=== PATIENT | female | born 2000 | race Caucasian/White ===

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

== ENCOUNTER 2020-09-02 17:52 | Observation (INO) | payer BC ==
[2020-09-02] MEDS ORDERED: Sodium Chloride 0.9% 10 ML Syringe FLUSH PRN (18:19)
[2020-09-02] MEDS ORDERED: Sodium Chloride 0.9% 1,000 ML IV ONE (18:19)
[2020-09-02] MEDS ORDERED: Ondansetron 4 MG/2 ML SDV IVPUSH ONE (18:19)
[2020-09-02] MEDS ORDERED: HYDROmorphone 0.5 MG/0.5 ML Syringe IVPUSH ONE (18:19)
--- NOTE | 2020-09-02 18:38 | EDM.PDOC ---
ED HPI GENERAL MEDICAL PROBLEM - General Chief Complaint: Abdominal Pain Stated Complaint: ABDOMINAL PAIN Time Seen by Provider: 09/02/20 18:07 Source of Information: Reports: Patient History Limitations: Reports: No Limitations, Other (Vital signs reveal a temp of 99.1, pulse of 70, respiratory rate 20, blood pressure 129/87, pulse 100% on room air) - History of Present Illness INITIAL COMMENTS - FREE TEXT/NARRATIVE: 19-year-old female presents to the emergency department today with complaints of right lower quadrant abdominal pain. She states the abdominal pain started when she was outside for last evening. She states she developed sudden onset right lower quadrant abdominal pain and then ran to the restroom and vomited a large amount due to the pain. She states that the pain has been fairly constant since it started. She states she did go to work this morning however she did leave early due to the pain. When she ambulates she does ambulate hunched over. She states that on the car ride over every bump that was hit in the road caused her to have significant pain to her right lower quadrant. She has been nauseated all day today and did attempt to eat supper however only ate a couple of bites of noodles. As she remained fairly nauseated due to the pain. She denies any fever or chills associated with this. She denies any diarrhea. She states she had a normal bowel movement yesterday morning. Right Abdomen Pain Score (Numeric/FACES): 10 - Related Data Allergies Allergy/AdvReac Type Severity Reaction Status Date / Time guaifenesin [From Mucinex] AdvReac Hallucinati Verified 09/03/18 19:06 ons morphine AdvReac Chest Pain Verified 09/03/18 19:06 Home Meds: Home Meds desog-e.[id number].estradioL [Kariva 28 Day] 1 tab PO DAILY 06/09/17 [History] FLUoxetine HCl [Fluoxetine HCl] 20 mg PO DAILY 03/11/18 [History] Ondansetron [Zofran ODT] 4 mg PO Q6H PRN #10 tab.dis 09/03/18 [Rx] Methylphenidate [Ritalin] 10 mg PO DAILY 09/02/20 [History] Past Medical History - Past Health History Medical/Surgical History: Denies Medical/Surgical History HEENT History: Reports: Otitis Media, Sinusitis, Other (See Below) Other HEENT History: pharyngitis, sore throat, wears glasses Cardiovascular History: Reports: None Respiratory History: Reports: Other (See Below) Other Respiratory History: cough, URI Gastrointestinal History: Reports: GERD Other Gastrointestinal History: abdominal pain Genitourinary History: Reports: None [employer] SAL[employer] History: Reports: None Musculoskeletal History: Reports: Other (See Below) Other Musculoskeletal History: left ankle injury, left wrist ganglion cyst Neurological History: Reports: None Psychiatric History: Reports: Anxiety Endocrine/Metabolic History: Reports: None Hematologic History: Reports: None Immunologic History: Reports: None Oncologic (Cancer) History: Reports: None Dermatologic History: Reports: Other (See Below) Other Dermatologic History: acne - Infectious Disease History Infectious Disease History: Reports: None - Past Surgical History Head Surgeries/Procedures: Reports: None HEENT Surgical History: Reports: Adenoidectomy, Oral Surgery, Tonsillectomy Cardiovascular Surgical History: Reports: None Respiratory Surgical History: Reports: None GI Surgical History: Reports: None Female Surgical History: Reports: None Other Female Surgeries/Procedures: on control pills Endocrine Surgical History: Reports: None Neurological Surgical History: Reports: None Musculoskeletal Surgical History: Reports: None Oncologic Surgical History: Reports: None Social & Family History - Family History Family Medical History: No Pertinent Family History Cardiac: Reports: CAD Respiratory: Reports: Asthma - Tobacco Use Tobacco Use Status *Q: Never Tobacco User - Caffeine Use Caffeine Use: Reports: Coffee, Energy Drinks, Soda, Tea - Recreational Drug Use Recreational Drug Use: No - Living Situation & Occupation Living situation: Reports: Single, with Family 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 ED EXAM, GI/ABD - Physical Exam Exam: See Below Exam Limited By: No Limitations General Appearance: Alert, WD/WN, Moderate Distress (gurading) Eyes: Bilateral: EOMI Ears: Normal External Exam, Hearing Grossly Normal Nose: Normal Inspection Throat/Mouth: Normal Inspection, Normal Lips, Normal Voice, No Airway Compromise Head: Atraumatic, Normocephalic Neck: Normal Inspection, Supple, Non-Tender, Full Range of Motion Respiratory/Chest: No Respiratory Distress, Lungs Clear, Normal Breath Sounds, No Accessory Muscle Use, Chest Non-Tender Cardiovascular: Normal Peripheral Pulses, Regular Rate, Rhythm, No Murmur GI/Abdominal Exam: Soft (semifirm), No Distention, Tender (right upper and lower quadrant), Abnormal Bowel Sounds (hypoactive) (Female) Exam: Deferred Rectal (Female) Exam: Deferred Back Exam: Normal Inspection Extremities: Normal Inspection Neurological: Alert, Oriented, Normal Cognition Psychiatric: Normal Affect, Normal Mood Skin Exam: Warm, Dry, Intact, Normal Color, No Rash Lymphatic: No Adenopathy Course - Vital Signs Text/Narrative:: 19-year-old female who developed right lower quadrant pain while she was eating supper last evening at a restaurant. She states the pain came on suddenly and caused her to run to the bathroom and vomit. Reports the pain has been fairly constant since then. Denies any associated fever or chills. Denies any diarrhea. Patient is healthy otherwise. I have ordered a urine test, urinalysis, labs, a liter of IV fluids as she is likely dehydrated, Zofran and Dilaudid for pain. Last Recorded V/S: Last Vital Signs Temp 99.1 F 09/02/20 18:10 Pulse 70 09/02/20 18:10 Resp 20 09/02/20 18:10 BP 129/87 09/02/20 18:10 Pulse Ox 100 09/02/20 18:10 - Orders/Labs/Meds Orders: Active Orders 24 hr Category Date Time Status Admission Status [Patient Status] [ADT] Routine ADT 09/02/20 22:00 Active Abdomen Pelvis w Cont [CT] Stat Exams 09/02/20 19:12 Taken CULTURE URINE [RM] Stat Lab 09/02/20 19:16 Received Sodium Chloride 0.9% [Normal Saline] 1,000 ml Med 09/02/20 19:45 Active IV ASDIRECTED Sodium Chloride 0.9% [Normal Saline] 100 ml Med 09/02/20 20:45 Active IV ASDIRECTED Sodium Chloride 0.9% [Saline Flush] Med 09/02/20 18:19 Active 10 ml FLUSH ASDIRECTED PRN Sodium Chloride 0.9% [Saline Flush] Med 09/02/20 20:45 Active 10 ml FLUSH BOLUS Saline Lock Insert [OM.PC] Stat Oth 09/02/20 18:19 Ordered Medication Orders Sodium Chloride (Normal Saline) 1,000 mls @ 100 mls/hr IV ASDIRECTED JEWELS Last Admin: 09/02/20 19:57 Dose: 100 mls/hr Documented by: CHELSI Sodium Chloride (Normal Saline) 100 mls @ 60 drops/hr IV ASDIRECTED JEWELS Sodium Chloride (Sodium Chloride 0.9% 10 Ml Syringe) 10 ml FLUSH ASDIRECTED PRN PRN Reason: Keep Vein Open Last Admin: 09/02/20 18:26 Dose: 10 ml Documented by: CHELSI Sodium Chloride (Sodium Chloride 0.9% 10 Ml Syringe) 10 ml FLUSH BOLUS JEWELS Labs: Laboratory Tests 09/02/20 09/02/20 09/02/20 Range/Units 18:20 18:20 18:20 WBC 7.90 (3.98-10.04) K/mm3 RBC 4.14 (3.98-5.22) M/mm3 Hgb 12.2 D (11.2-15.7) gm/dl Hct 35.8 (34.1-44.9) % MCV 86.5 (79.4-94.8) fl MCH 29.5 (25.6-32.2) pg MCHC 34.1 (32.2-35.5) g/dl RDW Std Deviation 38.5 (36.4-46.3) fL Plt Count 317 (182-369) K/mm3 MPV 8.4 L (9.4-12.3) fl Neut % (Auto) 53.2 (34.0-71.1) % Lymph % (Auto) 34.4 (19.3-51.7) % Atkinson % (Auto) 10.0 (4.7-12.5) % Eos % (Auto) 1.9 (0.7-5.8) Baso % (Auto) 0.4 (0.1-1.2) % Neut # (Auto) 4.20 (1.56-6.13) K/mm3 Lymph # (Auto) 2.72 (1.18-3.74) K/mm3 Atkinson # (Auto) 0.79 H (0.24-0.36) K/mm3 Eos # (Auto) 0.15 (0.04-0.36) K/mm3 Baso # (Auto) 0.03 (0.01-0.08) K/mm3 Sodium 139 (136-145) mEq/L Potassium 3.6 (3.5-5.1) mEq/L Chloride 104 (98-107) mEq/L Carbon Dioxide 27 (21-32) mEq/L Anion Gap 11.6 (5-15) BUN 11 (7-18) mg/dL Creatinine 0.9 (0.55-1.02) mg/dL Est Cr Clr Drug Dosing 78.76 mL/min Estimated GFR (MDRD) > 60 (>60) mL/min BUN/Creatinine Ratio 12.2 L (14-18) Glucose 107 H (74-106) mg/dL Calcium 8.6 (8.5-10.1) mg/dL Total Bilirubin 0.4 (0.2-1.0) mg/dL AST 22 (15-37) U/L ALT 28 (14-59) U/L Alkaline Phosphatase 54 (46-116) U/L C-Reactive Protein 0.7 (<1.0) mg/dL Total Protein 6.7 (6.4-8.2) g/dl Albumin 3.5 (3.4-5.0) g/dl Globulin 3.2 gm/dL Albumin/Globulin Ratio 1.1 (1-2) HCG, Qual Negative (NEGATIVE) Urine Color (Yellow) Urine Appearance (Clear) Urine pH (5.0-8.0) Ur Specific Crockett (1.005-1.030) Urine Protein (Negative) Urine Glucose (UA) (Negative) Urine Ketones (Negative) Urine Occult Blood (Negative) Urine Nitrite (Negative) Urine Bilirubin (Negative) Urine Urobilinogen (0.2-1.0) Ur Leukocyte Esterase (Negative) Urine RBC (0-5) /hpf Urine WBC (0-5) /hpf Ur Squamous Epith Cells (0-5) /hpf Urine Bacteria (FEW) /hpf Urine Mucus (FEW) /hpf SARS-CoV-2 RNA (DOLORES) (NEGATIVE) 09/02/20 09/02/20 Range/Units 18:22 19:16 WBC (3.98-10.04) K/mm3 RBC (3.98-5.22) M/mm3 Hgb (11.2-15.7) gm/dl Hct (34.1-44.9) % MCV (79.4-94.8) fl MCH (25.6-32.2) pg MCHC (32.2-35.5) g/dl RDW Std Deviation (36.4-46.3) fL Plt Count (182-369) K/mm3 MPV (9.4-12.3) fl Neut % (Auto) (34.0-71.1) % Lymph % (Auto) (19.3-51.7) % Atkinson % (Auto) (4.7-12.5) % Eos % (Auto) (0.7-5.8) Baso % (Auto) (0.1-1.2) % Neut # (Auto) (1.56-6.13) K/mm3 Lymph # (Auto) (1.18-3.74) K/mm3 Atkinson # (Auto) (0.24-0.36) K/mm3 Eos # (Auto) (0.04-0.36) K/mm3 Baso # (Auto) (0.01-0.08) K/mm3 Sodium (136-145) mEq/L Potassium (3.5-5.1) mEq/L Chloride (98-107) mEq/L Carbon Dioxide (21-32) mEq/L Anion Gap (5-15) BUN (7-18) mg/dL Creatinine (0.55-1.02) mg/dL Est Cr Clr Drug Dosing mL/min Estimated GFR (MDRD) (>60) mL/min BUN/Creatinine Ratio (14-18) Glucose (74-106) mg/dL Calcium (8.5-10.1) mg/dL Total Bilirubin (0.2-1.0) mg/dL AST (15-37) U/L ALT (14-59) U/L Alkaline Phosphatase (46-116) U/L C-Reactive Protein (<1.0) mg/dL Total Protein (6.4-8.2) g/dl Albumin (3.4-5.0) g/dl Globulin gm/dL Albumin/Globulin Ratio (1-2) HCG, Qual (NEGATIVE) Urine Color Yellow (Yellow) Urine Appearance Clear (Clear) Urine pH 7.0 (5.0-8.0) Ur Specific Crockett 1.020 (1.005-1.030) Urine Protein Negative (Negative) Urine Glucose (UA) Negative (Negative) Urine Ketones Negative (Negative) Urine Occult Blood Negative (Negative) Urine Nitrite Negative (Negative) Urine Bilirubin Negative (Negative) Urine Urobilinogen 0.2 (0.2-1.0) Ur Leukocyte Esterase 1+ H (Negative) Urine RBC 0-5 (0-5) /hpf Urine WBC 5-10 H (0-5) /hpf Ur Squamous Epith Cells 0-5 (0-5) /hpf Urine Bacteria Occasional (FEW) /hpf Urine Mucus Not seen (FEW) /hpf SARS-CoV-2 RNA (DOLORES) Negative (NEGATIVE) Meds: Medications Generic Name Dose Route Start Last Admin Trade Name Freq PRN Reason Stop Dose Admin Sodium Chloride 1,000 mls @ 100 mls/hr 09/02/20 19:45 09/02/20 19:57 Normal Saline IV 100 mls/hr ASDIRECTED JEWELS Administration Sodium Chloride 100 mls @ 60 drops/hr 09/02/20 20:45 Normal Saline IV ASDIRECTED JEWELS Sodium Chloride 10 ml 09/02/20 18:19 09/02/20 18:26 Sodium Chloride 0.9% 10 Ml Syringe FLUSH 10 ml ASDIRECTED PRN Administration Keep Vein Open Sodium Chloride 10 ml 09/02/20 20:45 Sodium Chloride 0.9% 10 Ml Syringe FLUSH BOLUS JEWELS Discontinued Medications Generic Name Dose Route Start Last Admin Trade Name Freq PRN Reason Stop Dose Admin Fentanyl 50 mcg 09/02/20 19:15 09/02/20 19:20 Fentanyl 100 Mcg/2 Ml Sdv IVPUSH 09/02/20 19:16 50 mcg ONETIME ONE Administration Hydromorphone HCl 0.5 mg 09/02/20 18:19 09/02/20 18:26 Hydromorphone 0.5 Mg/0.5 Ml Syringe IVPUSH 09/02/20 18:20 0.5 mg ONETIME ONE Administration Sodium Chloride 1,000 mls @ 999 mls/hr 09/02/20 18:19 09/02/20 18:26 Normal Saline IV 09/02/20 19:19 999 mls/hr ONETIME ONE Administration Iopamidol 100 ml 09/02/20 20:40 Iopamidol 612 Mg/Ml 100 Ml Bottle IVPUSH 09/02/20 20:41 ONETIME ONE Ketorolac Tromethamine 30 mg 09/02/20 21:34 09/02/20 21:40 Ketorolac 30 Mg/Ml Sdv IVPUSH 09/02/20 21:35 30 mg ONETIME ONE Administration Ondansetron HCl 4 mg 09/02/20 18:19 09/02/20 18:26 Ondansetron 4 Mg/2 Ml Sdv IVPUSH 09/02/20 18:20 4 mg ONETIME ONE Administration - Re-Assessments/Exams Free Text/Narrative Re-Assessment/Exam: 09/02/20 19:14 Hematology reveals a WBC of 7.90, hemoglobin 12.2, hematocrit 35.8, sodium 139, potassium 3.6, carbon dioxide 27, anion gap 11.6, BUN 11, creatinine 0.9, glucose 107, C-reactive protein 0.7, HCT qualitative is negative, Covid negative Patient is still having a significant amount of pain to her abdomen. I have ordered a CT of the abdomen pelvis with contrast. And I will order some fentanyl on this patient for pain control. 09/02/20 20:18 Urinalysis reveals 1+ leukocyte Estrace, 5-10 urine WBCs, urine culture is pending. 09/02/20 22:01 vRad radiologist impression: 1. The appendix is borderline prominent at 7 mm. No definite adjacent fat stranding. Correlate clinically and with laboratory values to exclude any possibility of very early appendicitis. 2. No other evidence for acute process within the abdomen/pelvis. No nonobstructive bowel. 3. Very minimal fullness of the left renal collecting system of uncertain significance. I have phoned , the surgeon on-call, and he request to have the patient admitted under observation status. He would like her to receive 1 g of Invanz, take the patient n.p.o., and have maintenance IV fluids running, and medicine for pain control. He will see her in the morning on the floor to discuss an appendectomy. I discussed this with the patient and her dad who is at the bedside and they are both agreeable to this plan. Departure - Departure Time of Disposition: 22:04 Disposition: Refer to Observation Condition: Good Clinical Impression: Appendicitis Qualifiers: Appendicitis type: acute appendicitis Acute appendicitis type: unspecified acute appendicitis type Qualified Code(s): K35.80 - Unspecified acute appendicit is - Discharge Information Referrals: Fridrich,Ladonna F, PA-C [Primary Care Provider] - Forms: ED Department Discharge Sepsis Event Note (ED) - Evaluation Sepsis Screening Result: No Definite Risk - Focused Exam Vital Signs: Vital Signs Temp Pulse Resp BP Pulse Ox 09/02/20 18:10 99.1 F 70 20 129/87 100 - My Orders Last 24 Hours: My Active Orders 09/02/20 18:19 Sodium Chloride 0.9% [Saline Flush] 10 ml FLUSH ASDIRECTED PRN Saline Lock Insert [OM.PC] Stat 09/02/20 19:12 Abdomen Pelvis w Cont [CT] Stat 09/02/20 19:16 CULTURE URINE [RM] Stat 09/02/20 19:45 Sodium Chloride 0.9% [Normal Saline] 1,000 ml IV ASDIRECTED 09/02/20 20:45 Sodium Chloride 0.9% [Normal Saline] 100 ml IV ASDIRECTED Sodium Chloride 0.9% [Saline Flush] 10 ml FLUSH BOLUS - Assessment/Plan Last 24 Hours: My Active Orders 09/02/20 18:19 Sodium Chloride 0.9% [Saline Flush] 10 ml FLUSH ASDIRECTED PRN Saline Lock Insert [OM.PC] Stat 09/02/20 19:12 Abdomen Pelvis w Cont [CT] Stat 09/02/20 19:16 CULTURE URINE [RM] Stat 09/02/20 19:45 Sodium Chloride 0.9% [Normal Saline] 1,000 ml IV ASDIRECTED 09/02/20 20:45 Sodium Chloride 0.9% [Normal Saline] 100 ml IV ASDIRECTED Sodium Chloride 0.9% [Saline Flush] 10 ml FLUSH BOLUS
[2020-09-02] MEDS ORDERED: fentaNYL 100 MCG/2 ML SDV IVPUSH ONE (19:15)
[2020-09-02] MEDS ORDERED: Sodium Chloride 0.9% 1,000 ML IV SCH (19:45)
[2020-09-02] MEDS ORDERED: Iopamidol 612 MG/ML 100 ML Bottle IVPUSH ONE (20:40)
[2020-09-02] MEDS ORDERED: Sodium Chloride 0.9% 100 ML IV SCH (20:45)
[2020-09-02] MEDS ORDERED: Sodium Chloride 0.9% 10 ML Syringe FLUSH SCH (20:45)
[2020-09-02] MEDS ORDERED: Ketorolac 30 MG/ML SDV IVPUSH ONE (21:34)
[2020-09-02] MEDS ORDERED: Ertapenem 1 GM Vial IM ONE (23:16)
[2020-09-02] MEDS ORDERED: Ertapenem 1 GM in Sodium Chloride 0.9% 50 ML IV ONE (23:39)
[2020-09-02] MEDS ORDERED: Sodium Chloride 0.9% 50 ML ONE (23:52)
[2020-09-02] MEDS: HYDROmorphone 0.5 MG/0.5 ML Syringe IVPUSH PRN (23:59)
[2020-09-03] MEDS ORDERED: Ondansetron 4 MG/2 ML SDV IVPUSH PRN (00:27)
[2020-09-03] MEDS ORDERED: Sodium Chloride 0.9% 1,000 ML IV SCH (01:00)
[2020-09-03] MEDS: HYDROmorphone 0.5 MG/0.5 ML Syringe IVPUSH PRN ×3 (03:28→10:28)
--- NOTE | 2020-09-03 09:19 | CT ---
CT abdomen and pelvis Technique: Multiple axial sections were obtained from above the dome of the diaphragm inferiorly through the pubic symphysis. Intravenous and oral contrast was utilized. Reconstructed coronal and sagittal images were obtained. Delayed images were also obtained through the abdomen and pelvis. Comparison: Prior CT abdomen and pelvis exam of 02/09/19. Findings: Visualized lung bases show nothing acute. Liver contains no focal parenchymal abnormality. Spleen appears within normal limits. Adrenal gland show no nodule. Pancreas shows no discrete abnormality. Kidneys show symmetric contrast enhancement. No hydronephrosis or mass is seen. Gallbladder contains no calcified gallstones. Abdominal aorta shows no aneurysm. No retroperitoneal adenopathy is seen. No pelvic mass or adenopathy is noted. Appendix measures 7 mm. No inflammatory change is seen around the appendix. Delayed images show contrast within both ureters as well as contrast within the bladder. Bone window settings were reviewed. No acute osseous finding is appreciated. Impression: 1. Appendix measures 7 mm. No inflammatory change is seen. No definite findings of appendicitis are seen but please correlate with the patient's symptoms and laboratory. 2. Nothing acute is appreciated on CT study of the abdomen and pelvis. Diagnostic code #2 I agree with preliminary report from [facility], finalized on 09/02/20, 10:40 PM CDT, code 1
--- NOTE | 2020-09-03 11:24 | PCM.PREANE ---
Preanesthetic Assessment - Procedure Proposed Procedure: Laparoscopic Appendectomy - Anesthesia/Transfusion/Family Hx Anesthesia History: Prior Anesthesia Without Reaction Family History of Anesthesia Reaction: No Transfusion History: No Prior Transfusion(s) Intubation History: Unknown - Review of Systems General: Fatigue, Malaise Pulmonary: No Symptoms Cardiovascular: No Symptoms Gastrointestinal: Abdominal Pain (RLQ), Nausea Neurological: No Symptoms - Physical Assessment NPO Status Date: 09/02/20 NPO Status Time: 00:00 Vital Signs: Last Vital Signs Temp 36.7 C 09/03/20 07:28 Pulse 83 09/03/20 07:28 Resp 14 09/03/20 07:28 BP 99/75 09/03/20 07:28 Pulse Ox 100 09/03/20 07:28 Height: 1.65 m Weight: 50.984 kg ASA Class: 1 Mental Status: Alert & Oriented x3 Airway Class: Mallampati = 1 Dentition: Reports: Normal Dentition Thyro-Mental Finger Breadths: 3 Mouth Opening Finger Breadths: 2 ROM/Head Extension: Full Lungs: Clear to Auscultation, Normal Respiratory Effort Cardiovascular: Regular Rate, Regular Rhythm - Lab Values: Laboratory Last Values WBC 7.90 K/mm3 (3.98-10.04) 09/02/20 18:20 RBC 4.14 M/mm3 (3.98-5.22) 09/02/20 18:20 Hgb 12.2 gm/dl (11.2-15.7) D 09/02/20 18:20 Hct 35.8 % (34.1-44.9) 09/02/20 18:20 MCV 86.5 fl (79.4-94.8) 09/02/20 18:20 MCH 29.5 pg (25.6-32.2) 09/02/20 18:20 MCHC 34.1 g/dl (32.2-35.5) 09/02/20 18:20 RDW Std Deviation 38.5 fL (36.4-46.3) 09/02/20 18:20 Plt Count 317 K/mm3 (182-369) 09/02/20 18:20 MPV 8.4 fl (9.4-12.3) L 09/02/20 18:20 Neut % (Auto) 53.2 % (34.0-71.1) 09/02/20 18:20 Lymph % (Auto) 34.4 % (19.3-51.7) 09/02/20 18:20 [place] % (Auto) 10.0 % (4.7-12.5) 09/02/20 18:20 Eos % (Auto) 1.9 (0.7-5.8) 09/02/20 18:20 Baso % (Auto) 0.4 % (0.1-1.2) 09/02/20 18:20 Neut # (Auto) 4.20 K/mm3 (1.56-6.13) 09/02/20 18:20 Lymph # (Auto) 2.72 K/mm3 (1.18-3.74) 09/02/20 18:20 [place] # (Auto) 0.79 K/mm3 (0.24-0.36) H 09/02/20 18:20 Eos # (Auto) 0.15 K/mm3 (0.04-0.36) 09/02/20 18:20 Baso # (Auto) 0.03 K/mm3 (0.01-0.08) 09/02/20 18:20 Sodium 139 mEq/L (136-145) 09/02/20 18:20 Potassium 3.6 mEq/L (3.5-5.1) 09/02/20 18:20 Chloride 104 mEq/L (98-107) 09/02/20 18:20 Carbon Dioxide 27 mEq/L (21-32) 09/02/20 18:20 Anion Gap 11.6 (5-15) 09/02/20 18:20 BUN 11 mg/dL (7-18) 09/02/20 18:20 Creatinine 0.9 mg/dL (0.55-1.02) 09/02/20 18:20 Est Cr Clr Drug Dosing 78.76 mL/min 09/02/20 18:20 Estimated GFR (MDRD) > 60 mL/min (>60) 09/02/20 18:20 BUN/Creatinine Ratio 12.2 (14-18) L 09/02/20 18:20 Glucose 107 mg/dL (74-106) H 09/02/20 18:20 Calcium 8.6 mg/dL (8.5-10.1) 09/02/20 18:20 Total Bilirubin 0.4 mg/dL (0.2-1.0) 09/02/20 18:20 AST 22 U/L (15-37) 09/02/20 18:20 ALT 28 U/L (14-59) 09/02/20 18:20 Alkaline Phosphatase 54 U/L (46-116) 09/02/20 18:20 C-Reactive Protein 0.7 mg/dL (<1.0) 09/02/20 18:20 Total Protein 6.7 g/dl (6.4-8.2) 09/02/20 18:20 Albumin 3.5 g/dl (3.4-5.0) 09/02/20 18:20 Globulin 3.2 gm/dL 09/02/20 18:20 Albumin/Globulin Ratio 1.1 (1-2) 09/02/20 18:20 HCG, Qual Negative (NEGATIVE) 09/02/20 18:20 Urine Color Yellow (Yellow) 09/02/20 19:16 Urine Appearance Clear (Clear) 09/02/20 19:16 Urine pH 7.0 (5.0-8.0) 09/02/20 19:16 Ur Specific [place] 1.020 (1.005-1.030) 09/02/20 19:16 Urine Protein Negative (Negative) 09/02/20 19:16 Urine Glucose (UA) Negative (Negative) 09/02/20 19:16 Urine Ketones Negative (Negative) 09/02/20 19:16 Urine Occult Blood Negative (Negative) 09/02/20 19:16 Urine Nitrite Negative (Negative) 09/02/20 19:16 Urine Bilirubin Negative (Negative) 09/02/20 19:16 Urine Urobilinogen 0.2 (0.2-1.0) 09/02/20 19:16 Ur Leukocyte Esterase 1+ (Negative) H 09/02/20 19:16 Urine RBC 0-5 /hpf (0-5) 09/02/20 19:16 Urine WBC 5-10 /hpf (0-5) H 09/02/20 19:16 Ur Squamous Epith Cells 0-5 /hpf (0-5) 09/02/20 19:16 Urine Bacteria Occasional /hpf (FEW) 09/02/20 19:16 Urine Mucus Not seen /hpf (FEW) 04/25/21 19:16 SARS-CoV-2 RNA (DOLORES) Negative (NEGATIVE) 09/02/20 18:22 - Allergies Allergies/Adverse Reactions: Allergies Allergy/AdvReac Type Severity Reaction Status Date / Time guaifenesin [From Mucinex] AdvReac Hallucinati Verified 09/02/20 23:03 ons morphine AdvReac Chest Pain Verified 09/02/20 23:03 - Blood Blood Available: No Product(s) Available: None - Anesthesia Plan Pre-Op Medication Ordered: None - Acknowledgements Anesthesia Type Planned: General Anesthesia Pt an Appropriate Candidate for the Planned Anesthesia: Yes Alternatives and Risks of Anesthesia Discussed w Pt/Guardian: Yes Pt/Guardian Understands and Agrees with Anesthesia Plan: Yes PreAnesthesia Questionnaire - Past Health History Medical/Surgical History: Denies Medical/Surgical History HEENT History: Reports: Otitis Media, Sinusitis, Other (See Below) Other HEENT History: pharyngitis, sore throat, wears glasses Cardiovascular History: Reports: None Respiratory History: Reports: Other (See Below) Other Respiratory History: cough, URI Gastrointestinal History: Reports: GERD Other Gastrointestinal History: abdominal pain Genitourinary History: Reports: None, Renal Calculus, Other (See Below) Other Genitourinary History: passed stone on her own 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 Musculoskeletal History: Reports: Other (See Below) Other Musculoskeletal History: left ankle injury, left wrist ganglion cyst Neurological History: Reports: None Psychiatric History: Reports: ADD, Anxiety, Panic Attack Endocrine/Metabolic History: Reports: None Hematologic History: Reports: None Immunologic History: Reports: None Oncologic (Cancer) History: Reports: None Dermatologic History: Reports: Other (See Below) Other Dermatologic History: acne - Infectious Disease History Infectious Disease History: Reports: None - Past Surgical History Head Surgeries/Procedures: Reports: None HEENT Surgical History: Reports: Adenoidectomy, Oral Surgery, Tonsillectomy Cardiovascular Surgical History: Reports: None Respiratory Surgical History: Reports: None GI Surgical History: Reports: None Female Surgical History: Reports: None Other Female Surgeries/Procedures: on control pills Endocrine Surgical History: Reports: None Neurological Surgical History: Reports: None Musculoskeletal Surgical History: Reports: None Oncologic Surgical History: Reports: None - SUBSTANCE USE Tobacco Use Status *Q: Never Tobacco User Tobacco Use Within Last Twelve Months: No Second Hand Smoke Exposure: No Days Per Week of Alcohol Use: 1 Number of Drinks Per Day: 0 Total Drinks Per Week: 0 Recreational Drug Use History: No - HOME MEDS Home Medications: Home Meds desog-e.estradioL/e.estradioL [Kariva 28 Day] 1 tab PO DAILY 06/09/17 [History] FLUoxetine HCl [Fluoxetine HCl] 20 mg PO DAILY 03/11/18 [History] Ondansetron [Zofran ODT] 4 mg PO Q6H PRN #10 tab.dis 09/03/18 [Rx] Methylphenidate [Ritalin] 10 mg PO DAILY 09/02/20 [History] - CURRENT (IN HOUSE) MEDS Current Meds: Current Medications Hydromorphone HCl (Hydromorphone 0.5 Mg/0.5 Ml Syringe) 0.5 mg IVPUSH Q2H PRN PRN Reason: Pain Last Admin: 09/03/20 10:28 Dose: 0.5 mg Documented by: Sodium Chloride (Normal Saline) 1,000 mls @ 100 mls/hr IV ASDIRECTED JEWELS Last Admin: 09/03/20 05:28 Dose: 100 mls/hr Documented by: Ondansetron HCl (Ondansetron 4 Mg/2 Ml Sdv) 4 mg IVPUSH Q6H PRN PRN Reason: Nausea Last Admin: 09/03/20 00:00 Dose: 4 mg Documented by: Sodium Chloride (Sodium Chloride 0.9% 10 Ml Syringe) 10 ml FLUSH ASDIRECTED PRN PRN Reason: Keep Vein Open Last Admin: 09/02/20 18:26 Dose: 10 ml Documented by: Discontinued Medications Fentanyl (Fentanyl 100 Mcg/2 Ml Sdv) 50 mcg IVPUSH ONETIME ONE Stop: 09/02/20 19:16 Last Admin: 09/02/20 19:20 Dose: 50 mcg Documented by: Hydromorphone HCl (Hydromorphone 0.5 Mg/0.5 Ml Syringe) 0.5 mg IVPUSH ONETIME ONE Stop: 09/02/20 18:20 Last Admin: 09/02/20 18:26 Dose: 0.5 mg Documented by: Sodium Chloride (Normal Saline) 1,000 mls @ 999 mls/hr IV ONETIME ONE Stop: 09/02/20 19:19 Last Admin: 09/02/20 18:26 Dose: 999 mls/hr Documented by: Sodium Chloride (Normal Saline) 1,000 mls @ 100 mls/hr IV ASD[facility]RECTED [facility] Last Admin: 09/02/20 19:57 Dose: 100 mls/hr Documented by: Sodium Chloride (Normal Saline) 100 mls @ 60 drops/hr IV ASDIRECTED JEWELS Ertapenem 1 gm/ Sodium (Chloride) 50 mls @ 100 mls/hr IV ONETIME ONE Stop: 09/03/20 00:08 Last Admin: 09/03/20 00:00 Dose: 100 mls/hr Documented by: Sodium Chloride (Normal Saline) Confirm Administered Dose 50 mls @ as directed .ROUTE .STK-MED ONE Stop: 09/02/20 23:53 Last Admin: 09/03/20 00:25 Dose: Not Given Documented by: Iopamidol (Iopamidol 612 Mg/Ml 100 Ml Bottle) 100 ml IVPUSH ONETIME ONE Stop: 09/02/20 20:41 Last Admin: 09/02/20 23:41 Dose: Not Given Documented by: Ketorolac Tromethamine (Ketorolac 30 Mg/Ml Sdv) 30 mg IVPUSH ONETIME ONE Stop: 09/02/20 21:35 Last Admin: 09/02/20 21:40 Dose: 30 mg Documented by: Ondansetron HCl (Ondansetron 4 Mg/2 Ml Sdv) 4 mg IVPUSH ONETIME ONE Stop: 09/02/20 18:20 Last Admin: 09/02/20 18:26 Dose: 4 mg Documented by: Sodium Chloride (Sodium Chloride 0.9% 10 Ml Syringe) 10 ml FLUSH BOLUS JEWELS
--- NOTE | 2020-09-03 11:27 | PCM.HP.2 ---
H&P History of Present Illness - General Date of Service: 09/03/20 Admit Problem/Dx: Admission Diagnosis/Problem Admission Diagnosis/Problem Appendicitis Source of Information: Patient History Limitations: Reports: No Limitations - History of Present Illness Initial Comments - Free Text/Narative: Patient started having acute right lower quadrant abdominal pain on Thursday n ight 09/01. That night she vomited after dinner. Thursday morning the pain was there but was able to eat breakfast and go to work. But she had to leave work early due to pain. She came to the ED with significant RLQ pain, unable to walk straight. In the ED wbc was normal but CT scan showed slightly enlarged appendix to 7 mm without discernible periappendiceal inflammation. I was called and recommended antibiotics and admission. I saw the patient tis morning and confirmed the history and findings. I am concerned that she has acute appendicitis. Onset of Symptoms: Reports: Gradual Duration of Symptoms: Reports: Day(s): (2), Getting Worse Location: Reports: Abdomen (rlq) Severity: Severe Improves with: Reports: Medication Worsens with: Reports: Movement Associated Symptoms: Reports: Nausea/Vomiting Right Abdomen Pain Score (Numeric/FACES): 5 - Related Data Allergies/Adverse Reactions: Allergies Allergy/AdvReac Type Severity Reaction Status Date / Time guaifenesin [From Mucinex] AdvReac Hallucinati Verified 09/02/20 23:03 ons morphine AdvReac Chest Pain Verified 09/02/20 23:03 Home Medications: Home Meds desog-e.estradioL/e.estradioL [Kariva 28 Day] 1 tab PO DAILY 06/09/17 [History] FLUoxetine HCl [Fluoxetine HCl] 20 mg PO DAILY 03/11/18 [History] Ondansetron [Zofran ODT] 4 mg PO Q6H PRN #10 tab.dis 09/03/18 [Rx] Methylphenidate [Ritalin] 10 mg PO DAILY 09/02/20 [History] Past Medical History - Past Health History Medical/Surgical History: Denies Medical/Surgical History HEENT History: Reports: Otitis Media, Sinusitis, Other (See Below) Other HEENT History: pharyngitis, sore throat, wears glasses Cardiovascular History: Reports: None Respiratory History: Reports: Other (See Below) Other Respiratory History: cough, URI Gastrointestinal History: Reports: GERD Other Gastrointestinal History: abdominal pain Genitourinary History: Reports: None, Renal Calculus, Other (See Below) Other Genitourinary History: passed stone on her own 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 Musculoskeletal History: Reports: Other (See Below) Other Musculoskeletal History: left ankle injury, left wrist ganglion cyst Neurological History: Reports: None Psychiatric History: Reports: ADD, Anxiety, Panic Attack Endocrine/Metabolic History: Reports: None Hematologic History: Reports: None Immunologic History: Reports: None Oncologic (Cancer) History: Reports: None Dermatologic History: Reports: Other (See Below) Other Dermatologic History: acne - Infectious Disease History Infectious Disease History: Reports: None - Past Surgical History Head Surgeries/Procedures: Reports: None HEENT Surgical History: Reports: Adenoidectomy, Oral Surgery, Tonsillectomy Cardiovascular Surgical History: Reports: None Respiratory Surgical History: Reports: None GI Surgical History: Reports: None Female Surgical History: Reports: None Other Female Surgeries/Procedures: on control pills Endocrine Surgical History: Reports: None Neurological Surgical History: Reports: None Musculoskeletal Surgical History: Reports: None Oncologic Surgical History: Reports: None Social & Family History - Family History Family Medical History: No Pertinent Family History Cardiac: Reports: CAD Respiratory: Reports: Asthma - Tobacco Use Tobacco Use Status *Q: Never Tobacco User Second Hand Smoke Exposure: No - Caffeine Use Caffeine Use: Reports: Coffee, Energy Drinks, Soda, Tea Other Caffeine Use: energy drink every day and the other vary - Recreational Drug Use Recreational Drug Use: No - Living Situation & Occupation Living situation: Reports: Single, with Family 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) H&P Review of Systems - Review of Systems: Review Of Systems: See Below HEENT: Reports: No Symptoms Pulmonary: Reports: No Symptoms Cardiovascular: Reports: No Symptoms Gastrointestinal: Reports: Abdominal Pain Genitourinary: Reports: No Symptoms Musculoskeletal: Reports: No Symptoms Skin: Reports: No Symptoms Exam - Exam Exam: See Below - Vital Signs Vital Signs: Last Vital Signs Temp 98.1 F 09/03/20 07:28 Pulse 83 09/03/20 07:28 Resp 14 09/03/20 07:28 BP 99/75 09/03/20 07:28 Pulse Ox 100 09/03/20 07:28 Weight: 50.984 kg - Exam General: Alert, Oriented, Cooperative Lungs: Clear to Auscultation, Normal Respiratory Effort Cardiovascular: Regular Rate, Regular Rhythm GI/Abdominal Exam: Soft, No Organomegaly, No Distention, No Abnormal Bruit, Tender (RLQ and when raising the right leg) - Patient Data Lab Results Last 24 hrs: Laboratory Results - last 24 hr 09/02/20 09/02/20 09/02/20 Range/Units 18:20 18:20 18:20 WBC 7.90 (3.98-10.04) K/mm3 RBC 4.14 (3.98-5.22) M/mm3 Hgb 12.2 D (11.2-15.7) gm/dl Hct 35.8 (34.1-44.9) % MCV 86.5 (79.4-94.8) fl MCH 29.5 (25.6-32.2) pg MCHC 34.1 (32.2-35.5) g/dl RDW Std Deviation 38.5 (36.4-46.3) fL Plt Count 317 (182-369) K/mm3 MPV 8.4 L (9.4-12.3) fl Neut % (Auto) 53.2 (34.0-71.1) % Lymph % (Auto) 34.4 (19.3-51.7) % [place] % (Auto) 10.0 (4.7-12.5) % Eos % (Auto) 1.9 (0.7-5.8) Baso % (Auto) 0.4 (0.1-1.2) % Neut # (Auto) 4.20 (1.56-6.13) K/mm3 Lymph # (Auto) 2.72 (1.18-3.74) K/mm3 [place] # (Auto) 0.79 H (0.24-0.36) K/mm3 Eos # (Auto) 0.15 (0.04-0.36) K/mm3 Baso # (Auto) 0.03 (0.01-0.08) K/mm3 Sodium 139 (136-145) mEq/L Potassium 3.6 (3.5-5.1) mEq/L Chloride 104 (98-107) mEq/L Carbon Dioxide 27 (21-32) mEq/L Anion Gap 11.6 (5-15) BUN 11 (7-18) mg/dL Creatinine 0.9 (0.55-1.02) mg/dL Est Cr Clr Drug Dosing 78.76 mL/min Estimated GFR (MDRD) > 60 (>60) mL/min BUN/Creatinine Ratio 12.2 L (14-18) Glucose 107 H (74-106) mg/dL Calcium 8.6 (8.5-10.1) mg/dL Total Bilirubin 0.4 (0.2-1.0) mg/dL AST 22 (15-37) U/L ALT 28 (14-59) U/L Alkaline Phosphatase 54 (46-116) U/L C-Reactive Protein 0.7 (<1.0) mg/dL Total Protein 6.7 (6.4-8.2) g/dl Albumin 3.5 (3.4-5.0) g/dl Globulin 3.2 gm/dL Albumin/Globulin Ratio 1.1 (1-2) HCG, Qual Negative (NEGATIVE) Urine Color (Yellow) Urine Appearance (Clear) Urine pH (5.0-8.0) Ur Specific [place] (1.005-1.030) Urine Protein (Negative) Urine Glucose (UA) (Negative) Urine Ketones (Negative) Urine Occult Blood (Negative) Urine Nitrite (Negative) Urine Bilirubin (Negative) Urine Urobilinogen (0.2-1.0) Ur Leukocyte Esterase (Negative) Urine RBC (0-5) /hpf Urine WBC (0-5) /hpf Ur Squamous Epith Cells (0-5) /hpf Urine Bacteria (FEW) /hpf Urine Mucus (FEW) /hpf SARS-CoV-2 RNA (DOLORES) (NEGATIVE) 09/02/20 09/02/20 Range/Units 18:22 19:16 WBC (3.98-10.04) K/mm3 RBC (3.98-5.22) M/mm3 Hgb (11.2-15.7) gm/dl Hct (34.1-44.9) % MCV (79.4-94.8) fl MCH (25.6-32.2) pg MCHC (32.2-35.5) g/dl RDW Std Deviation (36.4-46.3) fL Plt Count (182-369) K/mm3 MPV (9.4-12.3) fl Neut % (Auto) (34.0-71.1) % Lymph % (Auto) (19.3-51.7) % [place] % (Auto) (4.7-12.5) % Eos % (Auto) (0.7-5.8) Baso % (Auto) (0.1-1.2) % Neut # (Auto) (1.56-6.13) K/mm3 Lymph # (Auto) (1.18-3.74) K/mm3 [place] # (Auto) (0.24-0.36) K/mm3 Eos # (Auto) (0.04-0.36) K/mm3 Baso # (Auto) (0.01-0.08) K/mm3 Sodium (136-145) mEq/L Potassium (3.5-5.1) mEq/L Chloride (98-107) mEq/L Carbon Dioxide (21-32) mEq/L Anion Gap (5-15) BUN (7-18) mg/dL Creatinine (0.55-1.02) mg/dL Est Cr Clr Drug Dosing mL/min Estimated GFR (MDRD) (>60) mL/min BUN/Creatinine Ratio (14-18) Glucose (74-106) mg/dL Calcium (8.5-10.1) mg/dL Total Bilirubin (0.2-1.0) mg/dL AST (15-37) U/L ALT (14-59) U/L Alkaline Phosphatase (46-116) U/L C-Reactive Protein (<1.0) mg/dL Total Protein (6.4-8.2) g/dl Albumin (3.4-5.0) g/dl Globulin gm/dL Albumin/Globulin Ratio (1-2) HCG, Qual (NEGATIVE) Urine Color Yellow (Yellow) Urine Appearance Clear (Clear) Urine pH 7.0 (5.0-8.0) Ur Specific [place] 1.020 (1.005-1.030) Urine Protein Negative (Negative) Urine Glucose (UA) Negative (Negative) Urine Ketones Negative (Negative) Urine Occult Blood Negative (Negative) Urine Nitrite Negative (Negative) Urine Bilirubin Negative (Negative) Urine Urobilinogen 0.2 (0.2-1.0) Ur Leukocyte Esterase 1+ H (Negative) Urine RBC 0-5 (0-5) /hpf Urine WBC 5-10 H (0-5) /hpf Ur Squamous Epith Cells 0-5 (0-5) /hpf Urine Bacteria Occasional (FEW) /hpf Urine Mucus Not seen (FEW) /hpf SARS-CoV-2 RNA (DOLORES) Negative (NEGATIVE) Result Diagrams: 09/02/20 18:20 09/02/20 18:20 Sepsis Event Note - Evaluation Sepsis Screening Result: No Definite Risk - Focused Exam Vital Signs: Vital Signs Temp Pulse Resp BP Pulse Ox 09/03/20 07:28 98.1 F 83 14 99/75 100 09/03/20 03:30 98.1 F 69 16 114/88 97 Problem List Initiated/Reviewed/Updated: No Orders Last 24hrs: Active Orders 24 hr Category Date Time Status Admission Status [Patient Status] [ADT] Routine ADT 09/02/20 22:00 Active Bedrest Bathroom Privileges [RC] ASDIRECTED Care 09/03/20 00:27 Active NPO Now [Nothing per Oral Now Diet] [DIET] Diet 09/03/20 Breakfast Active CULTURE URINE [RM] Stat Lab 09/02/20 19:16 Results HYDROmorphone [Dilaudid] Med 09/02/20 23:17 Active 0.5 mg IVPUSH Q2H PRN Ondansetron [Zofran] Med 09/03/20 00:27 Active 4 mg IVPUSH Q6H PRN Sodium Chloride 0.9% [Normal Saline] 1,000 ml Med 09/03/20 01:00 Active IV ASDIRECTED Sodium Chloride 0.9% [Saline Flush] Med 09/02/20 18:19 Active 10 ml FLUSH ASDIRECTED PRN Saline Lock Insert [OM.PC] Stat Oth 09/02/20 18:19 Ordered Code Status [Resuscitation Status] Routine Resus Stat 09/03/20 01:01 Ordered Medication Orders Hydromorphone HCl (Hydromorphone 0.5 Mg/0.5 Ml Syringe) 0.5 mg IVPUSH Q2H PRN PRN Reason: Pain Last Admin: 09/03/20 10:28 Dose: 0.5 mg Documented by: Admin: 09/03/20 07:08 Dose: 0.5 mg Documented by: Admin: 09/03/20 03:28 Dose: 0.5 mg Documented by: Admin: 09/02/20 23:59 Dose: 0.5 mg Documented by: ROJELIO Sodium Chloride (Normal Saline) 1,000 mls @ 100 mls/hr IV ASDIRECTED JEWELS Last Admin: 09/03/20 05:28 Dose: 100 mls/hr Documented by: ROJELIO Ondansetron HCl (Ondansetron 4 Mg/2 Ml Sdv) 4 mg IVPUSH Q6H PRN PRN Reason: Nausea Last Admin: 09/03/20 00:00 Dose: 4 mg Documented by: ROJELIO Sodium Chloride (Sodium Chloride 0.9% 10 Ml Syringe) 10 ml FLUSH ASDIRECTED PRN PRN Reason: Keep Vein Open Last Admin: 09/02/20 18:26 Dose: 10 ml Documented by: CHELSI Assessment/Plan Comment:: I am concerned that the patient has acute appendicitis given RLQ pain and CT with slightly enlarged appendix in absence of any other pathology. I discussed this with the patient and her parents and recommended surgical appendectomy. However, I discussed both surgical and non-surgical options including risks and benefits. the patient opted for surgical appendectomy. Informed consent was obtained. We will explore the abdomen too to make sure no other etiology can visually be identified. Plan: lap appy, possible open, and other indicated procedures.
[2020-09-03] MEDS ORDERED: fentaNYL 250 MCG/5 ML SDV ONE (11:32)
[2020-09-03] MEDS ORDERED: Rocuronium 50 MG/5 ML Vial ONE (11:32)
[2020-09-03] MEDS ORDERED: Midazolam 1 MG/ML 2 ML SDV ONE (11:32)
[2020-09-03] MEDS ORDERED: Ondansetron 4 MG/2 ML SDV ONE (11:32)
[2020-09-03] MEDS ORDERED: Propofol 200 MG/20 ML SDV ONE (11:32)
[2020-09-03] MEDS ORDERED: Ketorolac 30 MG/ML SDV ONE (11:33)
[2020-09-03] MEDS ORDERED: Lidocaine 1% 4 ML ONE (11:33)
[2020-09-03] MEDS ORDERED: Bupivacaine 0.5%/EPINEPHrine 1:200,000 50 ML MDV ONE (12:58)
[2020-09-03] MEDS ORDERED: Glycopyrrolate 0.2 MG/ML SDV ONE (14:20)
[2020-09-03] MEDS ORDERED: fentaNYL 100 MCG/2 ML SDV IVPUSH PRN (14:34)
[2020-09-03] MEDS ORDERED: HYDROmorphone 0.5 MG/0.5 ML Syringe IVPUSH PRN (14:34)
--- NOTE | 2020-09-03 14:35 | PCM.POSTAN ---
POST ANESTHESIA ASSESSMENT - MENTAL STATUS Mental Status: Alert, Oriented - VITAL SIGNS Vital Signs: Last Vital Signs Temp 36.7 C 09/03/20 07:28 Pulse 83 09/03/20 07:28 Resp 14 09/03/20 07:28 BP 99/75 09/03/20 07:28 Pulse Ox 100 09/03/20 07:28 - RESPIRATORY Respiratory Status: Respiratory Rate WNL, Airway Patent, O2 Saturation Stable - CARDIOVASCULAR CV Status: Pulse Rate WNL, Blood Pressure Stable - GASTROINTESTINAL GI Status: No Symptoms - PAIN Pain Score: 2 - POST OP HYDRATION Hydration Status: Adequate & Stable - OBSERVATIONS Free Text/Narrative:: no anesthesia complications noted
--- NOTE | 2020-09-03 15:36 | OR ---
DATE OF OPERATION: 09/03/2020 SURGEON: Akosua Dalton MD PREOPERATIVE DIAGNOSIS: Acute appendicitis. POSTOPERATIVE DIAGNOSIS: Acute appendicitis. PROCEDURE: Laparoscopic appendectomy. ANESTHESIA: General endotracheal with local anesthetic with 1% lidocaine. ESTIMATED BLOOD LOSS: 10 mL. COMPLICATIONS: None. FINDINGS: Mid to distal appendicitis. Inflammatory fluid in the in the abdomen. Otherwise normal abdominal organs. INDICATION AND CONSENT: Ms. Mohamud is a 19-year-old female who started having acute right lower quadrant abdominal pain on Thursday. The patient had associated nausea and vomiting. On Thursday, the patient attempted to go to work, but had to come to the emergency room due to the severity of the pain. The pain was located in the right lower quadrant, was affecting her ability to walk. CT scan revealed concerns for slightly enlarged appendix at 7 mm, but no other abnormalities. The patient had no white count. No fevers, no chills. I saw the patient and evaluated the CT scan and examined. There was concern for low-grade appendicitis or early appendicitis and offered the patient laparoscopic appendectomy versus antibiotic treatment. The patient wanted to proceed with surgical treatment. Risks, benefits, and alternatives were discussed with the patient. Informed consent was obtained. DESCRIPTION OF PROCEDURE: The patient was taken to the operating room, placed in supine position, padded appropriately and secured to the operating table bed. Then, the abdomen was prepped and draped in the usual sterile fashion. Time-out was performed. The patient had received cefoxitin prior to being taken to the operating room. I began the procedure by making infraumbilical incision after injecting local anesthetic. Then, the Veress needle was inserted and the abdomen was insufflated to 15 mmHg. Then, a 12 mm trocar were placed under visualization of laparoscope. Upon entrance to the abdomen, inspection was performed. There were no injury to Veress needle or trocar insertion. Two 5 mm trocars were placed, one in the suprapubic and another one in the left lower quadrant. Then, a 5 mm scope was placed. It was placed through the left lower quadrant trocar and the abdomen was inspected thoroughly and the liver was normal. The bowels appeared normal. The uterus and ovaries appeared normal. There were no abnormalities. There was a moderate amount of inflammatory fluid in the pelvis as well as the right upper quadrant. Then, the patient was placed in slight Trendelenburg and [id number] and we focused on the right lower quadrant. There were of note the slight adhesions from the distal ascending colon to the abdominal wall indicating prior inflammatory event. Then, the appendix was retrocecal. This was carefully exposed. The mesoappendix was taken with LigaSure Impact and the appendix was transected at its base with the Endo-ROBBI stapler using a blue load. The staple line was inspected and found to be bleeding slightly. Two phylicia were placed at the bleeding area. It was completely hemostatic at this time. The specimen was placed into the EndoCatch bag. Once again, the staple line was reinspected. It seemed hemostatic. The appendix was removed through the infraumbilical incision and the infraumbilical incision was closed in 2 layers. The fascia was closed with 0 Vicryl stitches and the skin with 4-0 Monocryl. The skin at all other sites were closed with 4- 0 Monocryl. This concluded the procedure. At the end of the procedure, all instruments, sharps, and sponges were found were counted and found to be correct x2. The patient was awoken from anesthesia, extubated, and taken to the PACU in stable condition. The patient will be allowed to return home today if she tolerates fluids, and come to the office in 2 weeks for postop check. OPERATION PERFORMED: MMODAL /[id number]
--- NOTE | 2020-09-03 16:23 | PCM48HPAN ---
Post Anesthesia Note - EVALUATION WITHIN 48HRS OF ANESTHETIC Vital Signs in Normal Range: Yes Patient Participated in Evaluation: Yes Respiratory Function Stable: Yes Airway Patent: Yes Cardiovascular Function Stable: Yes Hydration Status Stable: Yes Pain Control Satisfactory: Yes Nausea and Vomiting Control Satisfactory: Yes Mental Status Recovered: Yes Vital Signs: Last Vital Signs Temp 36.6 C 09/03/20 14:55 Pulse 86 09/03/20 15:10 Resp 19 09/03/20 15:10 BP 129/85 09/03/20 15:10 Pulse Ox 97 09/03/20 15:10 - COMMENTS/OBSERVATIONS Free Text/Narrative:: no anesthesia complications noted
[2020-09-03] MEDS ORDERED: Metoclopramide 10 MG/2 ML SDV IVPUSH ONE (17:00)
[2020-09-03 18:13] VITALS: BP 108/68; PULSE 74
== END 2020-09-03 18:02 | disposition home or self-care (01) ==
LOC: JD.ED 17:52 → JD.MS 22:05 → JD.OB 09-03 15:43
PROVIDERS: ADMIT Surgery; ATTEND Surgery
DX: K35.80 Unspecified acute appendicitis (principal); K66.0 Peritoneal adhesions (postprocedural) (postinfection); Z01.812 Encounter for preprocedural laboratory examination; Z20.822 Contact with and (suspected) exposure to COVID-19; Z88.6 Allergy status to analgesic agent; Z79.899 Other long term (current) drug therapy
CPT/HCPCS: 36415; 44970; 74177; 80053; 81001; 84703; 85025; 86140; 87086; 87635; 96374; 96375; 96376; 99285; G0378; J0694; J1170; J1335; J1885; J2250; J2405; J2704; J2710; J2765; J3010; J3490; J7030; U0002

== ENCOUNTER 2021-12-11 17:40 | Emergency (ER) | payer BC ==
[2021-12-11 18:35] VITALS: BP 120/86; PULSE 74
== END 2021-12-11 18:50 | disposition left against medical advice (07) ==
LOC: JD.ED 17:40
DX: Z53.21 Procedure and treatment not carried out due to patient leaving prior to being seen by health care provider (principal)

== ENCOUNTER 2022-02-21 09:51 | Emergency (ER) | payer BC ==
[2022-02-21 10:10] VITALS: BP 145/91; PULSE 68
[2022-02-21] MEDS ORDERED: Lactated Ringers 1,000 ML IV ONE (10:39)
[2022-02-21] MEDS ORDERED: Ketorolac 30 MG/ML SDV IVPUSH ONE (10:39)
[2022-02-21] MEDS ORDERED: Ondansetron 4 MG/2 ML SDV IVPUSH ONE (10:39)
[2022-02-21] MEDS ORDERED: diphenhydrAMINE 50 MG/ML SDV IVPUSH ONE (11:21)
[2022-02-21] MEDS ORDERED: Metoclopramide 10 MG/2 ML SDV IVPUSH ONE (11:21)
== END 2022-02-21 13:15 | disposition home health service (06) ==
LOC: JD.ED 09:51
DX: G43.909 Migraine, unspecified, not intractable, without status migrainosus (principal); Z88.6 Allergy status to analgesic agent; Z88.8 Allergy status to other drugs, medicaments and biological substances; Z79.899 Other long term (current) drug therapy
CPT/HCPCS: 96361; 96374; 96375; 99283; J1200; J1885; J2405; J2765; J7120; 99282

== ENCOUNTER 2023-08-31 07:36 | Emergency (ER) | payer BC ==
[2023-08-31 08:13] LABS: BASOPHILS PERCENT AUTO 0.3 % (0.0-1.0); EOSINOPHILS ABSOLUTE AUTO 0.1 K/mm3 (0.0-0.4); EOSINOPHILS PERCENT AUTO 1.4 % (0.0-6.0); HEMATOCRIT 39.2 % (37.0-47.0); HEMOGLOBIN 13.5 gm/dl (12.0-16.0); IMMATURE GRAN ABSOLUTE AUTO 0.03 K/mm3 (0.00-0.05); IMMATURE GRAN PERCENT AUTO 0.3 % (0.0-0.4); LYMPHOCYTES ABSOLUTE AUTO 1.7 K/mm3 (1.0-4.8); MEAN CORPUSCULAR HGB CONC 34.4 g/dl (32.0-36.0); MEAN CORPUSCULAR VOLUME 84.1 fl (83.0-99.0); MEAN PLATELET VOLUME 8.3 fl (9.4-12.3); MONOCYTES ABSOLUTE AUTO 0.8 K/mm3 (0.0-0.8); MONOCYTES PERCENT AUTO 8.3 % (0.0-8.0); NEUTROPHILS ABSOLUTE AUTO 6.6 K/mm3 (1.8-7.7); NEUTROPHILS PERCENT AUTO 71.7 % (41.0-71.0); PLATELET COUNT,PLT 315 K/mm3 (150-400); RED BLOOD CELL COUNT 4.66 M/mm3 (4.10-5.30); WHITE BLOOD CELL COUNT,WBC 9.15 K/mm3 (3.9-11.3)
[2023-08-31] MEDS: Ondansetron 4 MG/2 ML SDV IVPUSH ONE (08:16)
[2023-08-31] MEDS: Morphine 4 MG/ML Syringe IVPUSH ONE ×2 (08:21→09:40)
[2023-08-31] MEDS: Sodium Chloride 0.9% 1,000 ML IV SCH (08:22)
[2023-08-31] MEDS: Sodium Chloride 0.9% 10 ML Syringe FLUSH PRN (08:23)
[2023-08-31 08:36] LABS: ALBUMIN 3.5 g/dl (3.4-5.0); ANION GAP 14.7 (5-15); BILIRUBIN TOTAL 0.4 mg/dL (0.2-1.0); BUN/CREATININE RATIO 11.3 (14-18); CALCIUM 8.8 mg/dL (8.5-10.1); CREATININE 0.8 mg/dL (0.55-1.02); EST CRCL DRUG DOSING (CG) 92.41 mL/min; POTASSIUM,K 3.7 mEq/L (3.5-5.1); PROTEIN TOTAL,TP 6.9 g/dl (6.4-8.2)
[2023-08-31] MEDS: Famotidine 20 MG/2 ML SDV IVPUSH ONE (09:38)
[2023-08-31 11:06] LABS: APPEARANCE,URINE CLEAR (Clear); BILIRUBIN,URINE NEGATIVE (Negative); COLOR,URINE YELLOW (Yellow); GLUCOSE,URINE NEGATIVE (Negative); KETONES,URINE NEGATIVE (Negative); LEUKOCYTE ESTERASE,URINE NEGATIVE (Negative); NITRITE,URINE NEGATIVE (Negative); OCCULT BLOOD,URINE NEGATIVE (Negative); PROTEIN,URINE NEGATIVE (Negative); UROBILINOGEN,URINE 0.2 (0.2-1.0)
[2023-08-31] MEDS: Alum Hydrox/Mag Hydrox/Simeth 30 ML, Lidocaine 2% 15 ML PO ONE (13:32)
[2023-08-31 16:09] VITALS: BP 95/81; PULSE 92
== END 2023-08-31 13:55 | disposition home or self-care (01) ==
LOC: JD.ED 07:36
DX: K80.50 Calculus of bile duct without cholangitis or cholecystitis without obstruction (principal); K21.9 Gastro-esophageal reflux disease without esophagitis; Z88.5 Allergy status to narcotic agent; Z88.8 Allergy status to other drugs, medicaments and biological substances; Z79.899 Other long term (current) drug therapy
CPT/HCPCS: 36415; 76705; 80053; 81003; 83690; 84703; 85025; 96361; 96374; 96375; 96376; 99284; A9270; J2270; J2405; J3490; J7030